=== PATIENT | male | born 1960 | race Caucasian/White ===

== ENCOUNTER 2020-08-03 13:30 | Outpatient (CLI) | payer OTHER | END 2020-08-03 13:41 | disposition home or self-care (01) | LOC: TOM 13:30 | PROVIDERS: ATTEND General Practice | DX: R55 Syncope and collapse (principal) ==

== ENCOUNTER 2020-08-14 12:45 | Outpatient (CLI) | payer OTHER | END 2020-08-14 12:52 | disposition home or self-care (01) | LOC: NUCLEAR 12:45 | PROVIDERS: ATTEND General Practice | DX: R55 Syncope and collapse (principal) ==

== ENCOUNTER 2020-09-03 14:52 | Outpatient (CLI) | payer OTHER | END 2020-09-03 15:08 | disposition home or self-care (01) | LOC: MRI 14:52 | PROVIDERS: ATTEND Physical Medicine & Rehabilitation Pain Medicine | DX: M54.2 Cervicalgia (principal) | CPT/HCPCS: 72141 ==

== ENCOUNTER 2022-06-23 06:14 | Emergency (ER) | payer OTHER ==
[~2022-06-23] VITALS: Ht 167.6 cm; Wt 79.4 kg
[2022-06-23] MEDS ORDERED: KETO10TA2 PO (11:26)
== END 2022-06-23 11:42 | disposition home or self-care (01) ==
LOC: ER 06:14
DX: M79.641 Pain in right hand (principal); M79.642 Pain in left hand; Z88.2 Allergy status to sulfonamides